=== PATIENT | female | born 1995 | race Two or more races ===

== ENCOUNTER 2017-04-01 15:18 | Emergency (ER) | payer SELFPAY ==
[~2017-04-01] VITALS: Ht 162.6 cm; Wt 54.4 kg
[2017-04-01 15:29] VITALS: BP 110/64
[2017-04-01] MEDS ORDERED: SULF1TAB24 PO (15:43)
--- NOTE | 2017-04-01 15:44 | PHYS DOC ---
Past Medical History Past Medical History: No Pertinent History Past Surgical History: No Surgical History Alcohol Use: Occasionally Drug Use: None Adult General Chief Complaint Chief Complaint: INSECT BITE HPI HPI Patient is a 21 year old female who presents with left lateral thigh abscess. Patient states she believes she got bit by something yesterday. Patient denies any fever. Review of Systems Review of Systems Constitutional: Denies fever or chills [] Eyes: Denies change in visual acuity, redness, or eye pain [] Musculoskeletal: Denies back pain or joint pain [] Integument:left lateral thigh abscess Neurologic: Denies headache, focal weakness or sensory changes [] Endocrine: Denies polyuria or polydipsia [] Physical Exam Physical Exam Constitutional: Well developed, well nourished, no acute distress, non-toxic appearance. [] HENT: Normocephalic, atraumatic, bilateral external ears normal, oropharynx moist, no oral exudates, nose normal. [] Skin: Left lateral thigh with an area of erythema approximately 2 x 2 centimeters with surrounding firmness approximately 4 x 4 cm. The area is warm and tender to touch. No fluctuance to the area. Back: No tenderness, no CVA tenderness. [] Extremities: No tenderness, no cyanosis, no clubbing, ROM intact, no edema. [] Neurologic: Alert and oriented X 3, normal motor function, normal sensory function, no focal deficits noted. [] Psychologic: Affect normal, judgement normal, mood normal. [] Current Patient Data Vital Signs Vital Signs Date Time Temp Pulse Resp B/P (MAP) Pulse Ox O2 Delivery O2 Flow Rate FiO2 04/01/17 15:29 99.0 115 16 95 Room Air 99.0 EKG EKG [] Radiology/Procedures Radiology/Procedures [] Course & Med Decision Making Course & Med Decision Making Pertinent Labs and Imaging studies reviewed. (See chart for details) Patient has an abscess of the left thigh, the abscess was not ready to be drained. Recommended warm compresses to the area. Given tetanus and Bactrim. Follow-up with PCP in 1-2 weeks. Dragon Disclaimer Dragon Disclaimer This electronic medical record was generated, in whole or in part, using a voice recognition dictation system. Departure Departure Impression: Primary Impression: Abscess of left thigh Disposition: HOME, SELF-CARE Condition: STABLE Referrals: NO PCP (PCP) Follow-up with the primary care doctor in 1-2 weeks. Patient Instructions: Abscess Additional Instructions: You were seen for an abscess on her left lateral thigh. Keep the area clean and dry. Apply warm compresses to the area. Take the prescribed antibiotics until completed. Come back to the ED if symptoms worsen. Scripts Sulfamethoxazole/Trimethoprim (BACTRIM DS TABLET) 1 Each Tablet 1 TAB PO BID, #20 TAB Prov: CARLEE RAY APRN 04/01/17 CARLEE RAY APRN Apr 01, 2017 15:44
[2017-04-01] MEDS ORDERED: DIPHTH,PERTUSS(ACELL),TET TOX 0.5 ML DISP.SYRIN. VAX IM ONE (15:45)
[2017-04-02] MEDS ORDERED: DIPH25CA58 PO (13:51)
[2017-04-02] MEDS ORDERED: CLIN150C14 PO (13:51)
[2017-04-02] MEDS ORDERED: FAMO-63 PO (13:51)
[2017-04-02] MEDS ORDERED: PRED50TA PO (13:51)
== END 2017-04-01 15:54 | disposition home or self-care (01) ==
LOC: ER 15:18
DX: L02.416 Cutaneous abscess of left lower limb (principal)
CPT/HCPCS: 90471; 90715; 99283-25

== ENCOUNTER 2017-04-02 11:35 | Emergency (ER) | payer SELFPAY ==
[~2017-04-02] VITALS: Ht 162.6 cm; Wt 54.4 kg
[~2017-04-02 11:35] MED LIST: SULF1TAB24 PO
[2017-04-02 12:01] VITALS: BP 113/69
[2017-04-02] MEDS ORDERED: LIDOCAINE 1% PF 2 ML VIAL. INJ ONE (12:15)
[2017-04-02] MEDS ORDERED: FAMOTIDINE 20 MG TABLET. PO ONE (12:15)
[2017-04-02] MEDS ORDERED: DEXAMETHASONE SOD PHOS 20 MG/5 ML VIAL. IM ONE (12:15)
[2017-04-02] MEDS ORDERED: cefTRIAXone IM 1 GM VIAL IM ONE (12:15)
[2017-04-02] MEDS ORDERED: diphenhydrAMINE 50 MG/ML VIAL IM ONE (12:15)
[2017-04-02] MEDS ORDERED: CLIN150C14 PO (13:51)
[2017-04-02] MEDS ORDERED: DIPH25CA58 PO (13:51)
[2017-04-02] MEDS ORDERED: FAMO-63 PO (13:51)
[2017-04-02] MEDS ORDERED: PRED50TA PO (13:51)
--- NOTE | 2017-04-02 13:52 | PHYS DOC ---
Past Medical History Past Medical History: No Pertinent History Past Surgical History: No Surgical History Alcohol Use: Occasionally Drug Use: None Adult General Chief Complaint Chief Complaint: ALLERGIC REACTION HPI HPI Patient is a 21 year old female who presents with facial swelling that she noted this morning. Patient was seen in the ED yesterday for an insect bite to the left lateral thigh and was discharged with Bactrim. The patient was seen by me. Patient states she took some of the Bactrim yesterday and this morning noted facial swelling. Patient denies any trouble breathing or swallowing. She is in the ED with the sister who was interpreting for [place]. Review of Systems Review of Systems Constitutional: Denies fever or chills [] Eyes: Denies change in visual acuity, redness, or eye pain [] HENT: Denies nasal congestion or sore throat [] Respiratory: Denies cough or shortness of breath [] Cardiovascular: No additional information not addressed in HPI [] GI: Denies abdominal pain, nausea, vomiting, bloody stools or diarrhea [] : Denies dysuria or hematuria [] Musculoskeletal: Denies back pain or joint pain [] Integument: Facial swelling Neurologic: Denies headache, focal weakness or sensory changes [] Endocrine: Denies polyuria or polydipsia [] Current Medications Current Medications Current Medications Medications (Trade) Dose Ordered Sig/Wolf Start Time Stop Time Status Last Admin Dose Admin Ceftriaxone Sodium (Rocephin Im) 1 gm 1X ONCE 04/02/17 12:15 04/02/17 12:18 DC 04/02/17 12:52 1 GM Dexamethasone Sodium Phosphate (Decadron) 10 mg 1X ONCE 04/02/17 12:15 04/02/17 12:18 DC 04/02/17 12:52 10 MG Diphenhydramine HCl (Benadryl) 50 mg 1X ONCE 04/02/17 12:15 04/02/17 12:18 DC 04/02/17 12:51 50 MG Famotidine (Pepcid) 20 mg 1X ONCE 04/02/17 12:15 04/02/17 12:18 DC 04/02/17 12:52 20 MG Lidocaine HCl (Xylocaine-Mpf 1% Vial) 2 ml 1X ONCE 04/02/17 12:15 04/02/17 12:18 DC 04/02/17 12:52 2 ML Allergies Allergies Allergies Coded Allergies Type Severity Reaction Last Updated Verified sulfamethoxazole Allergy Intermediate Swelling 04/02/17 Yes trimethoprim Allergy Intermediate Swelling 04/02/17 Yes Physical Exam Physical Exam Constitutional: Well developed, well nourished, no acute distress, non-toxic appearance. [] HENT: Normocephalic, atraumatic, bilateral external ears normal, oropharynx moist, no oral exudates, nose normal. [] Eyes: PERRLA, EOMI, conjunctiva normal, no discharge. [] Neck: Normal range of motion, no tenderness, supple, no stridor. [] Cardiovascular:Heart rate regular rhythm, no murmur [] Lungs & Thorax: Bilateral breath sounds clear to auscultation [] Abdomen: Bowel sounds normal, soft, no tenderness, no masses, no pulsatile masses. [] Skin: Patient has mild amount of diffuse facial swelling, the airway is open. Left lateral thigh has an area of erythema approximately 3 x 2 cm. The area of erythema is less than what it was yesterday. Neurovascular exam is normal to the left lower extremity. Back: No tenderness, no CVA tenderness. [] Extremities: No tenderness, no cyanosis, no clubbing, ROM intact, no edema. [] Neurologic: Alert and oriented X 3, normal motor function, normal sensory function, no focal deficits noted. [] Psychologic: Affect normal, judgement normal, mood normal. [] Current Patient Data Vital Signs Vital Signs Date Time Temp Pulse Resp B/P (MAP) Pulse Ox O2 Delivery O2 Flow Rate FiO2 04/02/17 12:01 98.9 119 20 113/69 (84) 95 Room Air 98.9 EKG EKG [] Radiology/Procedures Radiology/Procedures [] Course & Med Decision Making Course & Med Decision Making Pertinent Labs and Imaging studies reviewed. (See chart for details) Patient is in the ED with facial swelling. She was seen in the ED yesterday by me and was given Bactrim for an insect bite to the left lower extremity. She took the Bactrim and developed facial swelling. Her airway is open. She was given Decadron Pepcid and Benadryl and Rocephin injection in the ED. Her facial swelling has gone down. She was discharged with clindamycin. I highly suspect her facial swelling was an allergic reaction to Bactrim which we stopped. She' ll be discharged with Clindamycin, Prednisone, Benadryl. She was instructed to return to the ED if symptoms recur with clindamycin. Ronnell Disclaimer Ronnell Disclaimer This electronic medical record was generated, in whole or in part, using a voice recognition dictation system. Departure Departure Impression: Primary Impression: Abscess of left thigh Additional Impression: Allergic drug reaction Disposition: 01 HOME, SELF-CARE Condition: STABLE Referrals: NO PCP (PCP) Follow-up with your own doctor in one week Patient Instructions: Abscess, Drug Allergy Additional Instructions: You were seen with facial swelling which could've occurred from Bactrim. Do not take it. Switch to the new medication. Take the prednisone as prescribed as well as Pepcid and Benadryl. Follow-up with the primary care doctor in the next 1-2 weeks. Scripts Diphenhydramine Hcl (BENADRYL) 25 Mg Capsule 1 CAP PO Q4HRS W/A Y for RASH, #30 CAP 1 Refill Prov: CARLEE RAY APRN 04/02/17 Famotidine (PEPCID) 20 Mg Tablet 20 MG PO DAILY for 14 Days, #14 TAB Prov: CARLEE RAY APRN 04/02/17 Prednisone (PREDNISONE) 50 Mg Tablet 1 TAB PO DAILY, #5 TAB Prov: CARLEE RAY APRN 04/02/17 Clindamycin Hcl (CLINDAMYCIN HCL) 150 Mg Capsule 3 CAP PO TID, #90 CAP Prov: CARLEE RAY APRN 04/02/17 Problem Qualifiers Additional Impression: Allergic drug reaction Encounter type: initial encounter Qualified Codes: T78.40XA - Allergy, unspecified, initial encounter CARLEE RAY APRN Apr 02, 2017 13:52
== END 2017-04-02 14:00 | disposition home or self-care (01) ==
LOC: ER 11:35
DX: R22.0 Localized swelling, mass and lump, head (principal); T37.0X5A Adverse effect of sulfonamides, initial encounter; L02.416 Cutaneous abscess of left lower limb; Z88.2 Allergy status to sulfonamides; Z88.1 Allergy status to other antibiotic agents; Y92.89 Other specified places as the place of occurrence of the external cause
CPT/HCPCS: 96372; 99284; J0696; J1100; J1200